=== PATIENT | female | born 1945 | race Caucasian/White ===

== ENCOUNTER 2022-05-01 08:09 | Outpatient (CLI) | payer MEDICARE, SELFPAY ==
--- NOTE | ~2022-05-01 | CT_ITS ---
EXAMINATION: CT abdomen pelvis wo/w con DATE: 05/01/2022 08:55 INDICATION: Chronic urinary tract infections, frequent urination. History of breast cancer. TECHNIQUE: Computed tomography (CT) of the abdomen and pelvis was performed without and subsequently with 130 CC Omnipaque 350 intravenous contrast. Automated exposure control and iterative reconstructi on technique were employed. Exam dose: 2750.24 mGy-cm total exam DLP. COMPARISON: None. FINDINGS: Right lower lobe calcified pulmonary granuloma. Minimal discoid atelectasis or scarring at the lung bases. No basilar infiltrate or consolidation. Heart size is normal. No pericardial or pleural effusion. Status post cholecystectomy. No hepatic, splenic, pancreatic or adrenal space-occupying mass lesion is detected. No bile duct or pancreatic duct dilatation. No urinary tract calculus or hydroureteronephrosis. Approximately 1.5 cm left parapelvic renal cyst a nd 11 mm posterior mid left renal cortical cyst. No suspicious renal mass lesion is noted on either s rivera. The urinary bladder, uterus and adnexal areas are unremarkable. There is atherosclerotic calcification of the abdominal aorta and at the origins of the celiac and faulkner perior mesenteric and renal arteries. No abdominal aortic aneurysm. No intraperitoneal or retroperito trinh or pelvic mass lesion or adenopathy or ascites. There are occasional sigmoid diverticula; no CT evidence of diverticulitis. No bowel obstruction, bow el wall thickening, pneumatosis or intraperitoneal free air. No appendix is detected. Small fat-containing umbilical hernia. There is a battery pack in the subcutaneous tissues of the right lower back with lead extending throu gh a left sacral neural foramen. There is prominent degenerative change at the lumbar and lumbosacral apophyseal joints with associate d grade 1 anterolisthesis at L4-5. There is moderately severe degenerative disc disease at L5-S1. Juancarlos ateral hip osteoarthritis. No suspicious osteolytic or osteoblastic lesions. IMPRESSION: Status post cholecystectomy Left renal cysts Occasional sigmoid: Diverticulosis; no evidence of diverticulitis Reviewed, dictated and finalized at [facility]. Reviewed, dictated and finalized at [facility]. [employer]
[2022-05-01 08:40] LABS: Estimated Glomerular Filt Rate > 60
== END 2022-05-01 08:10 | disposition home or self-care (01) ==
PROVIDERS: PCP Family Medicine; Visit Provider Urology
DX: N39.0 Urinary tract infection, site not specified (principal); Z90.49 Acquired absence of other specified parts of digestive tract; N28.1 Cyst of kidney, acquired; K57.30 Diverticulosis of large intestine without perforation or abscess without bleeding
CPT/HCPCS: 74178; Q9967